=== PATIENT | male | born 1955 | race Caucasian/White ===

== ENCOUNTER → 2022-04-20 | Emergency (ER) | payer OTHER, MEDICARE ==
[~2022-04-20] MED LIST: Acetaminophen 500 MG Tab PO ONE; Albuterol/Ipratropium 3.0-0.5 MG/3 ML Neb Soln NEB ONE; Sodium Chloride 0.9% 10 ML Syringe FLUSH PRN
== END | disposition home or self-care (01) ==
LOC: LB.ED 18:37
DX: I10 Essential (primary) hypertension (principal); V49.40XA Driver injured in collision with unspecified motor vehicles in traffic accident, initial encounter; Y92.410 Unspecified street and highway as the place of occurrence of the external cause
CPT/HCPCS: 99284; A0425; A0429; A9270; 99282